=== PATIENT | female | born 1995 ===

== ENCOUNTER 2018-08-10 03:59 | Emergency (ER) | payer SELFPAY ==
[2018-08-10] MEDS ORDERED: NACL 0.9% 1000 ML 1,000 ML IV ONE (04:20)
[2018-08-10 04:39] LABS: Bilirubin,Urine NEG (Negative); Blood,Urine LG (Negative); Color,Urine Red (Yellow); Urobilinogen,Urine < 2.0 mg/dL (<2.0)
[2018-08-10 04:42] LABS: Basophils % (Auto) 0.6 % (0.0-1.8); Eosinophils # (Auto) 0.1 K/mm3 (0.0-0.4); Eosinophils % (Auto) 1.8 % (0.0-4.3); Hematocrit 37.2 % (30.3-42.9); Hemoglobin 12.4 gm/dl (10.1-14.3); Lymphocytes # (Auto) 3.8 K/mm3 (1.2-5.4); Lymphocytes % (Auto) 54.5 % (13.4-35.0); Mean Corpuscular HGB Conc 33 % (30-34); Mean Corpuscular Volume 84 fl (79-97); Monocytes # (Auto) 0.6 K/mm3 (0.0-0.8); Monocytes % (Auto) 7.9 % (0.0-7.3); Platelet Count 217 K/mm3 (140-440); RBC,Urine > 182.0 /HPF (0.0-6.0); Red Blood Count 4.45 M/mm3 (3.65-5.03); Red Cell Distribution Width 17.6 % (13.2-15.2)
[2018-08-10 05:06] LABS: Alanine Aminotransferase 150 units/L (7-56); Albumin 3.8 g/dL (3.9-5); BUN/Creatinine Ratio 37; Blood Urea Nitrogen 11 mg/dL (7-17); Hemolysis Index 3
[2018-08-10] MEDS ORDERED: MORPHINE IV ONE (06:59)
[2018-08-10] MEDS ORDERED: ROCEPHIN/NS 1 GM/50 ML 1 GM/50 ML BAG IV ONE (06:59)
--- NOTE | 2018-08-10 07:09 | Emergency Department Report ---
HPI - General Chief Complaint: Abdominal Pain Time Seen by Provider: 08/10/18 07:06 - HPI HPI: 22-year-old female presents to the emergency department with a complaint of pelvic and abdominal pain and some dysuria. The patient woke up in the middle of the night and went to the bathroom to urinate. She says that as she got to the bathroom she started to urinate on herself. She then sat on the toilet to finish urinating and suddenly started having sharp pelvic or suprapubic pains. Since that time she says that the pain has gotten progress ively worse and spread into the abdomen. It worsens with certain movements of her body like rolling/laying on her side. She denies any nausea, vomiting, fever, vaginal discharge. She also started having some vaginal bleeding. The patient says that she has a past medical history of a fibroid inside of the uterus towards the endometrium that was diagnosed back in January. She has not taken anything for her symptoms prior to arrival. ED Past Medical Hx - Past Medical History Previous Medical History?: No - Surgical History Past Surgical History?: Yes Additional Surgical History: 2012 - Social History Smoking Status: Never Smoker Substance Use Type: None - Medications Home Medications: Home Medications Medication Instructions Recorded Confirmed Last Taken Type HYDROcodone/APAP 5-325 [Dexter 1 each PO Q6HR PRN #10 tablet 08/10/18 Unknown Rx 5/325] Nitrofurantoin Monohyd/M-Cryst 100 mg PO BID #14 capsule 08/10/18 Unknown Rx [Macrobid 100 mg Capsule] Phenazopyridine [Pyridium] 100 mg PO TID #6 tab 08/10/18 Unknown Rx ED Review of Systems ROS: Stated complaint: ABDOMINAL PAIN Other details as noted in HPI Comment: All other systems reviewed and negative Constitutional: denies: chills, fever Eyes: denies: eye pain, vision change ENT: denies: ear pain, throat pain Respiratory: denies: cough, shortness of breath Cardiovascular: denies: chest pain, palpitations Gastrointestinal: abdominal pain. denies: vomiting Genitourinary: dysuria, other (pelvic pain). denies: urgency, discharge Musculoskeletal: denies: back pain, arthralgia Skin: denies: rash, lesions Neurological: denies: headache, weakness Physical Exam - Physical Exam Vital Signs: Vital Signs 08/10/18 08/10/18 04:10 04:11 Temperature 97.6 F 97.6 F Pulse Rate 92 H 90 Respiratory 18 18 Rate Blood Pressure 134/84 134/84 O2 Sat by Pulse 99 99 Oximetry Physical Exam: GENERAL: The patient is well-developed well-nourished. HEENT: Normocephalic. Atraumatic. Patient has moist mucous membranes. EYES: Extraocular motions are intact. Pupils are equal and reactive to light bilaterally. NECK: Supple. Trachea is midline. CHEST/LUNGS: Clear to auscultation. There is no respiratory distress noted. HEART/CARDIOVASCULAR: Regular. There is no tachycardia. There is no obvious murmur. ABDOMEN: Abdomen is soft. Generalized tenderness to palpation. No guarding. Patient has normal bowel sounds. There is no abdominal distention. SKIN: Skin is warm and dry. NEURO: The patient is awake, alert, and oriented. The patient is cooperative. The patient has no focal neurologic deficits. The patient has normal speech. MUSCULOSKELETAL: There is no tenderness or deformity. There is no limitation range of motion. There is no evidence of acute injury. ED Course Vital Signs 08/10/18 08/10/18 04:10 04:11 Temperature 97.6 F 97.6 F Pulse Rate 92 H 90 Respiratory 18 18 Rate Blood Pressure 134/84 134/84 O2 Sat by Pulse 99 99 Oximetry ED Medical Decision Making - Lab Data Result diagrams: 08/10/18 04:22 08/10/18 04:22 - Radiology Data Radiology results: report reviewed ULTRASOUND ABDOMEN COMPLETE: TECHNIQUE: Transabdominal ultrasound with color Doppler interrogation. HISTORY: Abdominal pain, elevated liver function tests. COMPARISON: none. FINDINGS: LIVER: The liver is slightly echogenic and attenuates the ultrasound beam consistent with diffuse fatty infiltration. No enlargement, focal mass or surface nodularity is identified. BILIARY SYSTEM: There is a small amount of sludge in the gallbladder. No shadowing gallstones, gallbladder wall thickening or surrounding fluid. The CBD measures 3 mm. PANCREAS: Only the proximal pancreas is visualized which is unremarkable. SPLEEN: 9.3 cm. No abnormality. KIDNEYS: Normal. AORTA/IVC: Normal. ASCITES: None. IMPRESSION: Fatty infiltration of the liver parenchyma. Small amount of sludge in the gallbladder. ULTRASOUND PELVIS AND DUPLEX DOPPLER COMPLETE ULTRASOUND TRANSVAGINAL HISTORY: Pelvic pain, vaginal bleeding, history of fibroids. COMPARISON: None at this facility. TECHNIQUE: Transabdominal and transvaginal ultrasound with color doppler interrogation. FINDINGS: Uterus: The uterus is anteverted. The uterus is mildly enlarged measuring 10.8 x 5.0 x 5.5 cm. The myometrium is slightly heterogeneous suggesting small intramural fibroids. No large exophytic or submucosal fibroid is demonstrated. Normal cervix. Endometrium: The endometrial stripe measures 1.6 cm in thickness. There is a small cystic structure within the endometrium. No obvious pole, yolk sac or cardiac activity could be demonstrated. This probably represents trace fluid or endometrial cyst. I cannot entirely exclude a very early intrauterine gestational sac. Please correlate with the patient's history and laboratory values. Right ovary: Normal. 3.8 x 2.2 x 2.5 cm. Left ovary: Not identified. No pelvic fluid or mass is identified. Normal color doppler interrogation. IMPRESSION: Mildly enlarged heterogeneous uterus consistent with mild uterine fibroid disease. The endometrium measures 1.6 cm. Trace fluid, cyst or possibly an early intrauterine gestational sac is identified in the endometrial canal. I favor trace fluid. Please correlate with the patient's presentation. Transcribed By: TTR Dictated By: VIRA LIU JR, MD Electronically Authenticated By: VIRA LIU JR, MD Signed Date/Time: 08/10/18 0756 - Medical Decision Making Patient presents with some abdominal pain, dysuria, vaginal bleeding that started last night. She has some known history of fibroid disease. Labs show elevation in her LFTs but normal bilirubin and alkaline phosphatase. She has a urinary tract infection with hematuria. Abdominal ultrasound does not show any acute process other than some fatty liver disease. Transvaginal/pelvic ultras ound shows some mild fibroid disease and mildly enlarged heterogenous uterus. Patient was given a dose of pain medication, antibiotics and some IV fluid. Upon reevaluation she is feeling improved. She appears safe for discharge home at this time. She will be given a prescription for Macrobid, Pyridium, and a small amount of pain medication. She will also be given referrals for [facility] and TRAFFIC SURVEY TECHNICIAN. She will return to the ER with any worsening of her symptoms or any acute distress. - Differential Diagnosis fibroids, uti, , cholelithiasis, cholecystitis, pancreatitis Critical Care Time: No Critical care attestation.: If time is entered above; I have spent that time in minutes in the direct care of this critically ill patient, excluding procedure time. ED Disposition Clinical Impression: Elevated liver enzymes, Sludge in gallbladder, Fatty liver disease, nonalcoholic, Dysfunctional uterine bleeding, Fibroids UTI (urinary tract infection) Qualifiers: Urinary tract infection type: acute cystitis Hematuria presence: with hematuria Qualified Code(s): N30.01 - Acute cystitis with hematuria Abdominal pain Qualifiers: Abdominal location: generalized Qualified Code(s): R10.84 - Generalized abdominal pain Disposition: TO HOME OR SELFCARE Is pt being admited?: No Condition: Stable Instructions: Abdominal Pain (ED), Uterine Fibroids (ED), Dysfunctional Uterine Bleeding (ED), Urinary Tract Infection in Women (ED), Non-Alcoholic Fatty Liver Disease (ED) Additional Instructions: Please follow up with a primary care physician and TRAFFIC SURVEY TECHNICIAN. Return to the emergency Department with any worsening of your symptoms or any acute distress. The Pyridium that was prescribed, which is for bladder spasm secondary to your urinary tract infection, has a side effect of turning your urine and/or secretions and abnormal color, usually orange. You have been prescribed a medication that can be sedating. Therefore, this me dication cannot be taken prior to driving, working, being responsible for children, and cannot be mixed with alcohol of any quantity. Prescriptions: Nitrofurantoin Monohyd/M-Cryst [Macrobid 100 mg Capsule] 100 mg PO BID #14 capsule HYDROcodone/APAP 5-325 [Dexter 5/325] 1 each PO Q6HR PRN #10 tablet PRN Reason: Pain Phenazopyridine [Pyridium] 100 mg PO TID #6 tab Referrals: VIRA GUTIERREZ MD [Staff Physician] - 2-3 Days [facility] [Outside] - 2-3 Days Time of Disposition: 08:50
--- NOTE | 2018-08-10 08:18 | Ultrasound Report ---
ULTRASOUND PELVIS AND DUPLEX DOPPLER COMPLETE ULTRASOUND TRANSVAGINAL HISTORY: Pelvic pain, vaginal bleeding, history of fibroids. COMPARISON: None at this facility. TECHNIQUE: Transabdominal and transvaginal ultrasound with color doppler interrogation. FINDINGS: Uterus: The uterus is anteverted. The uterus is mildly enlarged measuring 10.8 x 5.0 x 5.5 cm. The myometrium is slightly heterogeneous suggesting small intramural fibroids. No large exophytic or submucosal fibroid is demonstrated. Normal cervix. Endometrium: The endometrial stripe measures 1.6 cm in thickness. There is a small cystic structure within the endometrium. No obvious pole, yolk sac or cardiac activity could be demonstrated. This probably represents trace fluid or endometrial cyst. I cannot entirely exclude a very early intrauterine gestational sac. Please correlate with the patient's history and laboratory values. Right ovary: Normal. 3.8 x 2.2 x 2.5 cm. Left ovary: Not identified. No pelvic fluid or mass is identified. Normal color doppler interrogation. IMPRESSION: Mildly enlarged heterogeneous uterus consistent with mild uterine fibroid disease. The endometrium measures 1.6 cm. Trace fluid, cyst or possibly an early intrauterine gestational sac is identified in the endometrial canal. I favor trace fluid. Please correlate with the patient's presentation.
--- NOTE | 2018-08-10 08:20 | Ultrasound Report ---
ULTRASOUND ABDOMEN COMPLETE: TECHNIQUE: Transabdominal ultrasound with color Doppler interrogation. HISTORY: Abdominal pain, elevated liver function tests. COMPARISON: none. FINDINGS: LIVER: The liver is slightly echogenic and attenuates the ultrasound beam consistent with diffuse fatty infiltration. No enlargement, focal mass or surface nodularity is identified. BILIARY SYSTEM: There is a small amount of sludge in the gallbladder. No shadowing gallstones, gallbladder wall thickening or surrounding fluid. The CBD measures 3 mm. PANCREAS: Only the proximal pancreas is visualized which is unremarkable. SPLEEN: 9.3 cm. No abnormality. KIDNEYS: Normal. AORTA/IVC: Normal. ASCITES: None. IMPRESSION: Fatty infiltration of the liver parenchyma. Small amount of sludge in the gallbladder.
[2018-08-10 20:12] VITALS: BP 134/84
== END 2018-08-10 09:13 | disposition home or self-care (01) ==
LOC: ED 03:59
DX: N93.8 Other specified abnormal uterine and vaginal bleeding (principal); N39.0 Urinary tract infection, site not specified; R94.5 Abnormal results of liver function studies; K76.0 Fatty (change of) liver, not elsewhere classified
CPT/HCPCS: 36415; 76700; 76830; 80053; 81001; 84702; 85025; 93975; 96365; 96375; 99284; J0696; J2270